=== PATIENT | female | born 1985 | race Caucasian/White ===

== ENCOUNTER 2019-06-22 09:56 | Inpatient (IN) | payer MEDICAID ==
[~2019-06-22] VITALS: Ht 162.6 cm; Wt 79.8 kg
[2019-06-22] MEDS ORDERED: OXYTOCIN 30 UNITS/LACT RINGERS 500 ML IV ONE ×2 (10:15→18:34)
[2019-06-22] MEDS ORDERED: CITRIC ACID/SODIUM CITRATE 30 ML SOLUTION UDCUP PO PRN (10:15)
[2019-06-22] MEDS ORDERED: RINGERS SOLUTION,LACTATED 1,000 ML IV PRN (10:15)
[2019-06-22] MEDS ORDERED: METOCLOPRAMIDE HCL 5 MG/ML 2 ML VIAL IVP PRN (10:15)
[2019-06-22] MEDS ORDERED: METHYLERGONOVINE MALEATE 0.2 MG/ML VIAL IM PRN (10:15)
[2019-06-22] MEDS ORDERED: FentaNYL CITRATE-PF 100 MCG/2 ML VIAL IVP PRN (10:15)
[2019-06-22 10:39] VITALS: BP 113/69
[2019-06-22 11:05] LABS: BASOPHILS % (AUTO) 0.4 % (0.0-2.0); EOSINOPHILS % (AUTO) 0.1 % (1.0-6.0); HEMATOCRIT 34.8 % (36-46); HEMOGLOBIN 11.7 g/dL (12.0-16.0); LYMPHOCYTES # (AUTO) 1.3 K/uL (1.0-4.8); MEAN CORPUSCULAR HEMOGLOBIN 26.3 pg (26.0-34.0); MEAN CORPUSCULAR HGB CONC 33.6 G/dL (31.0-37.0); MEAN CORPUSCULAR VOLUME 78 fL (80-100); MONOCYTES # (AUTO) 0.5 K/uL (0.1-1.0); MONOCYTES % (AUTO) 5.1 % (2.0-9.0); NEUTROPHILS # (AUTO) 8.3 K/uL (1.8-7.7); NEUTROPHILS % (AUTO) 81.4 % (40.0-70.0); PLATELET COUNT (AUTO) 205 K/uL (150-450); RED BLOOD CELL COUNT(AUTO) 4.45 MIL/uL (4.00-5.20); RED CELL DISTRIBUTION WIDTH 17.5 % (11.5-14.5)
[2019-06-22] MEDS: RINGERS SOLUTION,LACTATED 1,000 ML IV SCH ×2 (11:51→13:21)
[2019-06-22] MEDS ORDERED: OXYTOCIN 30 UNITS/LACT RINGERS 500 ML IV PRN (12:11)
[2019-06-22 13:12] LABS: GLUCOMETER DEV NAME(LOC) 4S.; GLUCOSE,POINT OF CARE 83 MG/DL (70-110)
[2019-06-22] MEDS ORDERED: ROPIVACAINE HCL/PF 0.2% 100 ML ED ONE (13:21)
[2019-06-22] MEDS ORDERED: ONDANSETRON HCL 4 MG/2 ML VIAL IVP PRN (13:45)
[2019-06-22] MEDS ORDERED: DiphenhydrAMINE HCL 50 MG/ML VIAL IVP PRN (13:45)
[2019-06-22] MEDS ORDERED: ROPIVACAINE HCL/PF 0.2% 100 ML ED PRN (13:45)
[2019-06-22] MEDS ORDERED: LEVOTHYROXINE SODIUM 50 MCG TABLET PO ONE (15:00)
[2019-06-22] MEDS ORDERED: INFLUENZA VIRUS VACCINE QVS 2019-20 (3YR+)/PF 60 MCG/0.5 ML SYRINGE IM ONE (16:00)
[2019-06-22 16:22] LABS: GLUCOMETER DEV NAME(LOC) 4S.; GLUCOSE,POINT OF CARE 90 MG/DL (70-110)
[2019-06-22] MEDS ORDERED: LIDOCAINE/PF 1% 30 ML VIAL INJ PRN (18:45)
[2019-06-22] MEDS ORDERED: LANOLIN 7 GM OINTMENT TP PRN (18:45)
[2019-06-22] MEDS ORDERED: MAGNESIUM HYDROXIDE SUSPENSION 30 ML UDCUP PO PRN (18:45)
[2019-06-22] MEDS ORDERED: GLYCERIN/WITCH HAZEL LEAF 40 PADS JAR TP PRN (18:45)
[2019-06-22] MEDS ORDERED: OxyCODONE HCL/ACETAMINOPHEN 5-325 MG TABLET PO PRN ×2 (18:45)
[2019-06-22] MEDS ORDERED: BENZOCAINE 20%/MENTHOL 56 GM SPRAY CANISTER TP PRN (18:45)
[2019-06-22] MEDS ORDERED: OXYGEN THERAPY IH SCH (20:00)
[2019-06-22] MEDS: IBUPROFEN 800 MG TABLET PO PRN (20:49)
[2019-06-23] MEDS: IBUPROFEN 800 MG TABLET PO PRN ×2 (04:57→17:37)
[2019-06-23] MEDS ORDERED: LEVOTHYROXINE SODIUM 50 MCG TABLET PO SCH (06:30)
[2019-06-23 06:47] LABS: BASOPHILS % (AUTO) 0.4 % (0.0-2.0); EOSINOPHILS % (AUTO) 0.5 % (1.0-6.0); HEMATOCRIT 31.8 % (36-46); HEMOGLOBIN 10.6 g/dL (12.0-16.0); LYMPHOCYTES # (AUTO) 2.3 K/uL (1.0-4.8); LYMPHOCYTES % (AUTO) 22.1 % (22.0-44.0); MEAN CORPUSCULAR HEMOGLOBIN 26.4 pg (26.0-34.0); MEAN CORPUSCULAR HGB CONC 33.3 G/dL (31.0-37.0); MEAN CORPUSCULAR VOLUME 79 fL (80-100); MONOCYTES # (AUTO) 0.7 K/uL (0.1-1.0); MONOCYTES % (AUTO) 6.8 % (2.0-9.0); NEUTROPHILS # (AUTO) 7.1 K/uL (1.8-7.7); NEUTROPHILS % (AUTO) 70.2 % (40.0-70.0); PLATELET COUNT (AUTO)-OB 178 K/uL (150-450); RED CELL DISTRIBUTION WIDTH 17.2 % (11.5-14.5)
[2019-06-23 07:20] LABS: GLUCOMETER DEV NAME(LOC) 4S.; GLUCOSE,POINT OF CARE 69 MG/DL (70-110)
[2019-06-23] MEDS ORDERED: LEVO75 PO (13:29)
[2019-06-23] MEDS ORDERED: INSNPH SQ (13:29)
[2019-06-23] MEDS ORDERED: PREN-217 PO (13:31)
[2019-06-23] MEDS ORDERED: FERR-89 PO ×2 (13:31→13:38)
[2019-06-23] MEDS ORDERED: IBUP-2071 PO (13:36)
[2019-06-23] MEDS ORDERED: DOCU-275 PO (13:39)
== END 2019-06-23 18:45 | disposition home or self-care (01) | DRG 560 ==
LOC: 4S 10:10 → OBSVTOIN 10:10
PROVIDERS: ADMIT Obstetrics & Gynecology; ATTEND Obstetrics & Gynecology
PROC: 10E0XZZ Delivery of Products of Conception, External Approach (ICD-10-PCS; principal; 2019-06-22)
PROC: 0KQM0ZZ Repair Perineum Muscle, Open Approach (ICD-10-PCS; 2019-06-22)
PROC: 3E0R3BZ Introduction of Anesthetic Agent into Spinal Canal, Percutaneous Approach (ICD-10-PCS; 2019-06-22)
PROC: 00HU33Z Insertion of Infusion Device into Spinal Canal, Percutaneous Approach (ICD-10-PCS; 2019-06-22)
DX: O24.429 Gestational diabetes mellitus in childbirth, unspecified control (principal); O70.1 Second degree perineal laceration during delivery; Z3A.38 38 weeks gestation of pregnancy; Z37.0 Single live birth
CPT/HCPCS: 86850; 86900; 86901; J2590; J2795; J7120